=== PATIENT | male | born 1965 | race Caucasian/White ===

== ENCOUNTER 2023-12-28 06:35 | Day surgery (SDC) | payer MEDICARE, OTHER, SELFPAY ==
[2023-12-28] VITALS (12 sets, daily range): BP systolic 94–123; BP diastolic 67–83; BMI 25.4
[2023-12-28] MEDS: TYLENOL 1000 MG PO (08:38)
[2023-12-28] MEDS: CELEBREX 200 MG PO (08:38)
[2023-12-28] MEDS: NORMOSOL-R 1000 IV (09:01)
== END 2023-12-28 14:55 | disposition home or self-care (01) ==
LOC: SDS 06:35
PROVIDERS: ATTENDING PHYSICIAN Specialist
DX: M75.101 Unspecified rotator cuff tear or rupture of right shoulder, not specified as traumatic (principal); M19.011 Primary osteoarthritis, right shoulder; M65.811 Other synovitis and tenosynovitis, right shoulder
CPT/HCPCS: 29827; 29826; C9290

== ENCOUNTER → 2024-01-30 06:42 | Outpatient (REF) | payer MEDICARE, OTHER, SELFPAY | LOC: MRI 06:42 | PROVIDERS: ATTENDING PHYSICIAN Orthopaedic Surgery; FAMILY PHYSICIAN Family Medicine | DX: M54.16 Radiculopathy, lumbar region (principal) | CPT/HCPCS: 72148 ==

== ENCOUNTER 2024-03-15 12:04 | Outpatient (RCR) | payer MEDICARE, OTHER, SELFPAY | END 2024-03-15 23:59 | disposition home or self-care (01) | LOC: RPT 12:04 | PROVIDERS: ATTENDING PHYSICIAN Specialist; FAMILY PHYSICIAN Family Medicine | DX: M62.81 Muscle weakness (generalized) (principal); M25.511 Pain in right shoulder; Z98.890 Other specified postprocedural states; Z73.6 Limitation of activities due to disability | CPT/HCPCS: 97010; 97110; 97140; 97161 ==

== ENCOUNTER 2024-04-18 09:59 | Outpatient (RCR) | payer MEDICARE, OTHER, SELFPAY | END 2024-04-18 23:59 | disposition home or self-care (01) | LOC: RPT 09:59 | PROVIDERS: ATTENDING PHYSICIAN Specialist; FAMILY PHYSICIAN Family Medicine | DX: M25.512 Pain in left shoulder (principal); Z98.890 Other specified postprocedural states; Z73.6 Limitation of activities due to disability | CPT/HCPCS: 97010; 97110; 97112; 97140 ==

== ENCOUNTER 2024-04-25 09:08 | Outpatient (RCR) | payer MEDICARE, OTHER, SELFPAY | END 2024-04-28 08:04 | disposition home or self-care (01) | LOC: RPT 09:08 | PROVIDERS: ATTENDING PHYSICIAN Specialist; FAMILY PHYSICIAN Family Medicine | DX: M54.40 Lumbago with sciatica, unspecified side (principal); Z73.6 Limitation of activities due to disability; Z98.890 Other specified postprocedural states | CPT/HCPCS: 97110 ==

== ENCOUNTER → 2024-05-04 12:11 | Outpatient (REF) | payer MEDICARE, OTHER, SELFPAY | LOC: RAD 12:11 | PROVIDERS: ATTENDING PHYSICIAN Emergency Medicine | DX: M25.551 Pain in right hip (principal) | CPT/HCPCS: 73502 ==

== ENCOUNTER 2024-08-17 08:56 | Outpatient (RCR) | payer MEDICARE, OTHER, SELFPAY | END 2024-08-17 23:59 | disposition home or self-care (01) | LOC: RPT 08:56 | PROVIDERS: ATTENDING PHYSICIAN Physician Assistant Medical; FAMILY PHYSICIAN Family Medicine | DX: M48.062 Spinal stenosis, lumbar region with neurogenic claudication (principal); M51.26 Other intervertebral disc displacement, lumbar region; Z73.6 Limitation of activities due to disability | CPT/HCPCS: 97110; 97112; 97162 ==

== ENCOUNTER 2024-09-21 08:58 | Outpatient (RCR) | payer MEDICARE, OTHER, SELFPAY | END 2024-09-21 23:59 | disposition home or self-care (01) | LOC: RPT 08:58 | PROVIDERS: ATTENDING PHYSICIAN Physician Assistant Medical; FAMILY PHYSICIAN Family Medicine | DX: M48.062 Spinal stenosis, lumbar region with neurogenic claudication (principal); M51.26 Other intervertebral disc displacement, lumbar region; Z73.6 Limitation of activities due to disability | CPT/HCPCS: 97110; 97112; 97140 ==

== ENCOUNTER 2024-09-28 12:58 | Outpatient (RCR) | payer MEDICARE, OTHER, SELFPAY | END 2024-09-28 13:51 | disposition home or self-care (01) | LOC: RPT 12:58 | PROVIDERS: ATTENDING PHYSICIAN Physician Assistant Medical; FAMILY PHYSICIAN Family Medicine | DX: M48.062 Spinal stenosis, lumbar region with neurogenic claudication (principal); M51.26 Other intervertebral disc displacement, lumbar region; Z73.6 Limitation of activities due to disability | CPT/HCPCS: 97110; 97112 ==

== ENCOUNTER → 2025-01-15 06:28 | Outpatient (REF) | payer MEDICARE, OTHER, SELFPAY | LOC: RAD 06:28 | PROVIDERS: ATTENDING PHYSICIAN Emergency Medicine | DX: N28.1 Cyst of kidney, acquired (principal); Z87.891 Personal history of nicotine dependence; Z13.6 Encounter for screening for cardiovascular disorders | CPT/HCPCS: 71271; 76770; 76775 ==

== ENCOUNTER → 2025-03-26 08:25 | Outpatient (REF) | payer MEDICARE, OTHER, SELFPAY | LOC: MRI 08:25 | PROVIDERS: ATTENDING PHYSICIAN Orthopaedic Surgery Orthopaedic Surgery of the Spine; FAMILY PHYSICIAN Emergency Medicine | DX: M48.062 Spinal stenosis, lumbar region with neurogenic claudication (principal) | CPT/HCPCS: 72158; A9575 ==

== ENCOUNTER → 2025-07-27 12:10 | Outpatient (REF) | payer MEDICARE, OTHER, SELFPAY | LOC: PAVMRI 12:10 | PROVIDERS: ATTENDING PHYSICIAN Emergency Medicine | DX: M50.30 Other cervical disc degeneration, unspecified cervical region (principal); M54.2 Cervicalgia; Z98.1 Arthrodesis status | CPT/HCPCS: 72156; A9575 ==